=== PATIENT | female | born 1995 | race Caucasian/White ===

== ENCOUNTER 2018-06-15 11:23 | Inpatient (IN) | payer OTHER ==
[~2018-06-15] VITALS: Ht 172.7 cm; Wt 81.8 kg
[2018-06-15 12:25] LABS: HEMATOCRIT 41.2 % (36.0-47.0); MEAN CORPUSCULAR VOLUME 88.2 fl (80.0-96.0); PLATELET COUNT, AUTOMATED 303 10^3/uL (150-450); RED BLOOD COUNT 4.67 10^6/uL (4.00-5.40); WHITE BLOOD COUNT 10.6 10^3/uL (4.0-10.0)
[2018-06-15 13:27] LABS: HCG, SERUM QUALITATIVE NEGATIVE (NEGATIVE)
[2018-06-15 13:39] LABS: ACETAMINOPHEN LEVEL < 2.0 UG/ML (10.0-30.0); ALT/SGPT 19 U/L (12-78); BILIRUBIN,DIRECT < 0.1 MG/DL (0.0-0.2); BILIRUBIN,TOTAL 0.2 MG/DL (0.2-1.0); BLOOD UREA NITROGEN 9 MG/DL (7-18); CALCIUM LEVEL 9.3 MG/DL (8.5-10.1); CARBON DIOXIDE LEVEL 24 MEQ/L (21-32); CHLORIDE LEVEL 106 MEQ/L (98-107); CREATININE FOR GFR 0.64 MG/DL (0.55-1.30); ETHYL ALCOHOL (ETHANOL) < 0.003 % (0.000-0.010); GLUCOSE, FASTING 82 MG/DL (70-100); POTASSIUM SERUM 4.1 MEQ/L (3.5-5.1); SALICYLATE LEVEL < 1.7 MG/DL (5.0-30.0); SODIUM LEVEL 139 MEQ/L (136-145); THYROID STIMULATING HORMONE 0.829 uIU/ML (0.463-3.98); TOTAL PROTEIN 7.5 GM/DL (6.4-8.2)
[2018-06-15 13:53] LABS: AMPHETAMINES LEVEL URINE NEGATIVE (NEGATIVE); BARBITURATES URINE NEGATIVE (NEGATIVE); BENZODIAZEPINES URINE NEGATIVE (NEGATIVE); CANNABINOIDS URINE NEGATIVE (NEGATIVE); COCAINE METABOLITE URINE NEGATIVE (NEGATIVE); METHADONE URINE NEGATIVE (NEGATIVE); OPIATES URINE NEGATIVE (NEGATIVE); PHENCYCLIDINE URINE NEGATIVE (NEGATIVE)
[2018-06-15] MEDS ORDERED: ALPRAZolam 0.5 MG TAB PO ONE (17:15)
--- NOTE | 2018-06-15 22:13 | ECGEPIP ---
Stationary ECG Study [facility] - ED Test Date: 2018-06-15 Pat Name: NING ROSARIO Department: Room: - Gender: F Anesthesiology Faculty: jose : 1995 Requested By: Isaias Reece Order Number: [id number] Reading MD: Blake Dorsey Measurements Intervals [place] Rate: 101 P: 19 VT: 133 QRS: 56 QRSD: 84 T: 44 QT: 310 QTc: 403 Interpretive Statements SINUS TACHYCARDIA Comparison tracing not on file Electronically Signed On 06-15-2018 22:13:09 EDT by Blake Dorsey
[2018-06-16] MEDS: VENLAFAXINE **XR** 37.5 MG CAPSULE PO SCH (09:00)
[2018-06-16] MEDS ORDERED: SUMA6KIT SC (10:57)
[2018-06-16] MEDS ORDERED: JOLETAB PO (10:57)
[2018-06-16] MEDS ORDERED: AMBI5TAB PO (10:57)
[2018-06-16] MEDS ORDERED: NORT25CA2 PO (10:57)
[2018-06-16] MEDS ORDERED: traZODone 50 MG TAB PO PRN (11:15)
[2018-06-16] MEDS ORDERED: ACETAMINOPHEN TAB 650MG DOSE (2X325MG) PO PRN (11:15)
[2018-06-16] MEDS ORDERED: MOM 30ML SUSPENSION UDC PO PRN (11:15)
[2018-06-16] MEDS ORDERED: MAALOX 30 ML SUSP *UDC PO PRN (11:15)
[2018-06-16 12:06] VITALS: BP 132/70
--- NOTE | 2018-06-16 12:49 | HPEPDOC ---
[facility] Medical History & Physical Date of Admission Jun 16, 2018 History and Physical PCP: Krunal Philip ATTENDING: Dr. Natanael Patricia HPI: 22yoF admitted to [facility] for unspecified depressive disorder, being medically examined today. No acute medical complaints today. States she takes Pamelor daily for HICKMAN prophylaxis. HAs have been infrequent, last used imitrex injection approximately 1 month ago. States seen in the past by neurology and her current regimen has been working well for her. Denies any fevers, chills, weakness, fatigue, HICKMAN, CP, SOB, cough, palpitations, abdominal pain, N/V/D or changes in bowel or bladder habits. PMHx: Anxiety depression H/O SI/SA, Ibuprofen OD 2011 H/O self harm, cutting. insomnia migraine HICKMAN PSHX: denies SOCHX: Resides in: [facility], from [facility] Marital Status: Kids: none Employment: unemployed Tobacco use: denies ETOH: denies Illicit Drugs: Denies IV Drug Use: Denies Tattoos done unprofessionally: Denies FAMHX: Mother: Alive, thyroid disorder, anxiety Father: Alive, HTN Siblings: 2 brothers Alive, well Children: none ROS: As noted in HPI, otherwise 11pt ROS of systems reviewed and remarkable only for LMP early May 2018, states takes continuous OCP, cycles Q3 mo. PE: GEN: 22yoF, appears stated age. Well-nourished, well developed. No acute distress. Alert and oriented x 3. Pleasant, interactive. HEENT: Normocephalic, atraumatic. Pupils are equal, round, and reactive to li ght. Extraocular movements are intact. No nystagmus appreciated. Sclera are nonicteric. Conjunctiva without injection. Nose midline. Nasal turbinates without bogginess. EACs both patent BL. TMs both visualized and napier with good cone of light, no bulging or erythema. No facial asymmetry. Moist mucous membranes. Dentition fair. Pharynx pink and moist, no cobblestoning. Neck supple, trachea midline. No lymphadenopathy or thyromegaly appreciated. CHEST: Regular rate and rhythm, +S1, +S2 LUNGS: Clear to auscultation bilaterally. No wheezes, rales, or rhonchi. Breathing appears symmetric and easy. Patient is speaking in full sentences. No accessory muscle use. ABD: Round, soft, non-tender, non-distended. +Bowel sounds throughout. No rebound or guarding. No costovertebral angle tenderness. EXT: Pulses 2+ bilaterally dorsalis pedis and radial. No lower extremity edema appreciated. SKIN: [place], dry, warm. Capillary refill <2sec. No rashes. NEURO: Alert and oriented x 3. Cranial nerves III-XII are intact. No focal de ficits appreciated. EKG: SINUS TACHYCARDIA Comparison tracing not on file Electronically Signed On 06-15-2018 22:13:09 EDT by Blake Dorsey A&P: 22yoF admitted to [facility] for unspecified depressive disorder 1. Psych. Plan per Psychiatry. EKG on file. 2. Migraine HICKMAN. Continue migraine prophylaxis as previously prescribed. Pamelor 100mg daily. Tylenol as needed. Has not used Imitrex injection in the past 1 month. 3.Continue OCP. 4. Follow up with PCP on discharge. 5. Staff member Kateryna AGGARWAL present throughout exam. Vital Signs Vital Signs Date Time Temp Pulse Resp B/P (MAP) Pulse Ox O2 Delivery O2 Flow Rate FiO2 06/16/18 11:18 98.1 112 18 132/70 (90) 100 06/16/18 06:40 Room Air Laboratory Data Labs 24H Laboratory Tests 2 06/15/18 13:20: Urine Amphetamines Screen NEGATIVE, Urine Benzodiazepines Screen NEGATIVE, Urine Opiates Screen NEGATIVE, Urine Methadone Screen NEGATIVE, Urine Barbiturates Screen NEGATIVE, Urine Phencyclidine Screen NEGATIVE, Urine Cocaine Metabolite Screen NEGATIVE, Urine Cannabinoids Screen NEGATIVE Home Medications Scheduled (Jolessa 0.15-0.03 mg) 1 Tab Tab, 1 TAB PO DAILY Nortriptyline HCl (Nortriptyline HCl) 25 Mg Cap, 100 MG PO QHS Zolpidem Tartrate (Ambien) 5 Mg Tab, 5 MG PO QHS Scheduled PRN Sumatriptan Succinate (Sumatriptan Succinate Ref) 6 Mg/0.5 Ml Inj, 6 MG SC DAILY PRN for MIGRAINE Allergies Coded Allergies: Sulfa Antibiotics (Verified Allergy, Intermediate, Hives, 06/15/18) Coleen Alejandro Jun 16, 2018 12:49
--- NOTE | 2018-06-16 17:09 | MHHPEPDOC ---
General Date Of Admission: Jun 16, 2018 Legal Status: 9.39 Chief Complaint "I've been more anxious than depresed, I've been having family problems History of Present Illness HISTORY OF THE PRESENT ILLNESS: Patient is a 22 -year-old , female, who according to ED report: "Patient reports that she has lived here ([place]) for about 6 months. She is from the [facility] & states that she & her decided to get impulsively, following a fairly brief courtship. She states that when they first began seeing each other, he accused her of "cheating" on him because she remained platonic friends with another male, with whom she had text contact. She insists that she had nothing to hide, however this "cheating" has been an issue ever since. She describes her as very controlling, while she appears very dependent. She states that he is so obsessed about her being a "cheater", that he has suggested that perhaps he should be "allowed" to cheat on her with someone else, "At least once". Patient states that the fighting has been escalating recently, to the point where he has threatened to leave her. She stated over & over that she "Can't lose him", regardless of the cost. Patient reports having previous h/o cutting & overdose, resulting in one previous hospitalization. She reports that her current associated sx include insomnia, decreased appetite, severe anxiety, suicidal thoughts & urge to engage in cutting. Throughout interview patient was sobbing, almost uncontrollably. She was quite insitent that she did not wish to stay in the hospital. Patient's was briefly interviewed (separately), to obtain his opinion regarding her safety. stated that patient would be safe if D/C home with him, however he insisted that he wouldn't feel that she was safe if left alone. He noted that he is unable to be with her 28/10 due to his responsibilities with his unit. Patient also noted that she needs medication, is currently in no treatment & has no idea where to seek follow up. While appropriate referrals could be provided if there was a safe D/C plan, she would still not see a provider with the ability to prescribe meds for a least a few weeks.At this time patient appears desperate & at risk for self-injury or suicide, with little insight & poor judgm ent. 06/15/18 @ 6:00 pm- At this time, [facility], [place], [facility], [facility], [facility], [facility], [facility], [facility] are all at capacity. [facility] has confirmed bed availability at [facility]. It has advised that prior to faxing a referral packet, and EKG must be completed. Patient is presently refusing this procedure at the recommendation of her , who reportedly stated, "You don't have to do this", when patient was approached by RN. has continued to attempt to impede patient's course of treatment, even after speaking at length with ED package dyeing machine operator, [facility] Nursing Deputy Program Manager & this lyric writer (several times). 06/16/18 @ 11:00 am- [facility] has had a discharge & now has availability to accommodate patient. Admission orders have been obtained from Dr. Escoto & patient will be admitted on . Psychiatric Review of Systems Depression (2 or more weeks): depressed mood (because she is anxious and she doesn't want to feel shaky, "I just want to calm down"), insomnia/hypersomnia (Insomnia, she takes Ambien ), feelings of excess/guilt [place] (4 or more days of): denies Psychosis: denies PTSD: denies Anxiety: gen/non-specific anxiety, situational anxiety, stressor related anxiety, panic attacks (she had one and it was months ago, she was alone for the first time in her house) Anxiety/ 6 months or more of: sleep disturbance (insmnia) Past Psychiatric History Previous Psychiatric Diagnosis: When she was admitted in [place] (2011) she was diagnosed with anxiety and depression Previous Psychiatric Admissions: Yes, she was admitted in [place] Suicide Attempts: Denies Psychiatric Follow-up: She has a therapist appointment with wayne Almazan Psychiatric medications: She took Sertraline a few days ago but she stopped taking it because she didn't think it was effective Past Medical History Medical Problems Chronic migraines and she takes 00 mgs of Nortryptiline at bedtime and she has an injection, Sumavel, the last time she had it was in April Head Injury: No Seizures: No Hospitalizations: Yes Surgeries: No Family Medical/Psychiatric HX Medical Problems Alive and well Psychiatric Disorders: Yes (mom recently started having anxiety ) Addiction: No Suicide Attemps/Completions: No Addiction History denies Social History Childhood: She was born and raised in [place], [place], she's the only girl out of two boys, she feels she was favored sometimes. She liked going to school, she was in sports, she had a lot of friends. Abuse/Trauma: Denies Current Living Situation: Lives with her and a puppy, "she's like a child", [place] Education: finished HS, she majored in [employer] technology Employment: Unemployed Social Support: Her , her family Legal: Denies Marital: , she has no children. Mental Status Examination General Appearance: well groomed, appears stated age, hospital scubs/clothing Build: average Demeanor: average Eye Contact: average Activity: average Behavior: cooperative Speech: clear, spontaneous, reg/rate,rhythm,volume Mood: anxious Affect: full, appropriate, anxious Thought Process: logical/linear Thought Content (Delusions): none reported Thought Content (Other): none reported Thought Content (Aggressive): none reported Perception (Hallucinations): none reported Perception (Other): none reported Cognition (Impairment of): none reported Cognition(Intelligence Est.): average Oriented: Awake, Alert, Oriented times three Insight: fair Judgment: Fair Psychosis: Denies Diagnoses 1. Generalized Anxiety Disorder 2. Adjustment disorder with anxious/depressed mood 3. R/O Persistent depressive disorder Initial Treatment Plan 1. Patient was admitted on a [9.39] status. 2. Complete history was obtained. 3. With patients permission, family will be contacted and database will be expanded. 4. Patients medication regimen will be reviewed and changed accordingly. 5. Patient will be provided with protected environment. 6. Patient will be treated with individual, group, and milieu therapies. 7. Patient will receive supportive psych-education. 8. Discharge planning will commence immediately. 9. Outpatient follow-up treatment will be strongly recommended. 10. The initial treatment plan will focus initially on: * Anxiety * Ineffective coping * ESTIMATED LENGTH OF STAY: 5-7 DAYS. TIME SPENT COUNSELING AND COORDINATING INITIAL CARE: 60 minutes. Vital Signs Vital Signs Date Time Temp Pulse Resp B/P (MAP) Pulse Ox O2 Delivery O2 Flow Rate FiO2 06/16/18 12:06 98.1 112 18 132/70 (90) 100 06/16/18 06:40 Room Air Medications Scheduled (Jolessa 0.15-0.03 mg) 1 Tab Tab, 1 TAB PO DAILY, (Reported) Nortriptyline HCl (Nortriptyline HCl) 25 Mg Cap, 100 MG PO QHS, (Reported) Zolpidem Tartrate (Ambien) 5 Mg Tab, 5 MG PO QHS, (Reported) Scheduled PRN Sumatriptan Succinate (Sumatriptan Succinate Ref) 6 Mg/0.5 Ml Inj, 6 MG SC DAILY PRN for MIGRAINE, (Reported) Allergies Coded Allergies: Sulfa Antibiotics (Verified Allergy, Intermediate, Hives, 06/15/18) PIPER ESCOTO MD Jun 16, 2018 16:40
[2018-06-16] MEDS ORDERED: PROPRANOLOL 10 MG TAB PO PRN (17:15)
[2018-06-16 18:00] VITALS: BP 140/79
[2018-06-16] MEDS ORDERED: NORTRIPTYLINE 25 MG CAP PO SCH (21:00)
[2018-06-16] MEDS: zolPIDEM TARTRATE 5 MG TAB PO SCH (23:24)
[2018-06-16] MEDS: PROPRANOLOL 10 MG TAB PO SCH (23:24)
[2018-06-17] MEDS: UNRESOLVED PATIENT OWN MED ORDER XX SCH (00:01)
[2018-06-17 06:00] VITALS: BP 139/59
[2018-06-17] MEDS ORDERED: JOLESSA PO SCH (09:00)
[2018-06-17] MEDS: VENLAFAXINE **XR** 37.5 MG CAPSULE PO SCH (09:21)
[2018-06-17] MEDS: PROPRANOLOL 10 MG TAB PO SCH ×3 (09:22→21:56)
[2018-06-17] MEDS ORDERED: hydrOXYzine 50 MG TAB PO ONE (15:15)
[2018-06-17 18:16] VITALS: BP 137/89
--- NOTE | 2018-06-17 20:58 | MHIPNPDOC ---
[facility] Progress Note Progress Note DATE OF SERVICE: 06/17/18 HISTORY: Patient is a 22 -year-old , female, who according to ED report: "Patient reports that she has lived here ([place]) for about 6 months. She is from the [facility] & states that she & her decided to get impulsively, following a fairly brief courtship. She states that when they first began seeing each other, he accused her of "cheating" on him because she remained platonic friends with another male, with whom she had text contact. She insists that she had nothing to hide, however this "cheating" has been an issue ever since. She describes her as very controlling, while she appears very dependent. She states that he is so obsessed about her being a "cheater", that he has suggested that perhaps he should be "allowed" to cheat on her with someone else, "At least once". Patient states that the fighting has been escalating recently, to the point where he has threatened to leave her. She stated over & over that she "Can't lose him", regardless of the cost. Patient reports having previous h/o cutting & overdose, resulting in one previous hospitalization. She reports that her current associated sx include insomnia, decreased appetite, severe anxiety, suicidal thoughts & urge to engage in cutting. Throughout interview patient was sobbing, almost uncontrollably. She was quite insitent that she did not wish to stay in the hospital. Patient's was briefly interviewed (separately), to obtain his opinion regarding her safety. stated that patient would be safe if D/C home with him, however he insisted that he wouldn't feel that she was safe if left alone. He noted that he is unable to be with her 28/10 due to his responsibilities with his unit." VITAL SIGNS: See below. NEW TEST RESULTS: See below CURRENT MEDICATIONS: See below. MENTAL STATUS EXAMINATION: General Appearance: well groomed, appears stated age, hospital scubs/clothing Build: average Demeanor: irritable, angry Eye Contact: avoidant Activity: anxious Behavior: cooperative Speech: clear, spontaneous, reg/rate,rhythm loud volume, yelling at a certain point Mood: anxious Affect: full, inappropriate, anxious Thought Process: logical/linear Thought Content (Delusions): none reported Thought Content (Other): none reported Thought Content (Aggressive): none reported Perception (Hallucinations): none reported Perception (Other): none reported Cognition (Impairment of): none reported Cognition(Intelligence Est.): average Oriented: Awake, Alert, Oriented times three Insight: fair Judgment: Fair Psychosis: Denies Diagnoses 1. Generalized Anxiety Disorder 2. Adjustment disorder with anxious/depressed mood 3. R/O Persistent depressive disorder ASSESSMENT: Patient became agitated today when I told her I would not let her go because her didn't think she was going to be safe at home if she stayed alone. TW asked her to lower the volume of her voice. I told her that if the Surveyor [employer] talked to him and found out that she could stay with someone at home, then she could go home. logistics planner contacted her and he said he was going to ask for a week off to stay with her. MANAGEMENT PLAN: discharge tomorrow. TIME SPENT: 25 minutes. Vital Signs Vital Signs Date Time Temp Pulse Resp B/P (MAP) Pulse Ox O2 Delivery O2 Flow Rate FiO2 06/17/18 18:16 98.6 94 16 137/89 (105) 06/17/18 11:07 Room Air 06/16/18 12:06 100 Current Medications Current Medications Acetaminophen (Tylenol Tab) 650 mg Q6HP PRN PO HEADACHE or DISCOMFORT Last administered on 06/17/18at 18:09; Start 06/16/18 at 11:15 Al Hydrox/Mg Hydrox/Simethicone (Mylanta) 30 ml Q4HP PRN PO HEARTBURN/INDIGESTION; Start 06/16/18 at 11:15 Home Med (Med Rec Complete!) ASDIRECTED XX ; Start 06/16/18 at 11:00; Stop at 11:00; Status DC Magnesium Hydroxide (Milk Of Magnesia) 30 ml DAILYPRN PRN PO CONSTIPATION; Start 06/16/18 at 11:15 Miscellaneous (Unresolved Patient Own Med Order) SEE LABEL COMMENTS UNRESOLVED XX ; Start 06/17/18 at 00:01 Nortriptyline HCl (Pamelor) 100 mg QHS PO ; Start 06/16/18 at 21:00; Status Cancel Patient Own Medication (Patient'S Own Med) Jolessa DAILY PO ; Start 06/17/18 at 09:00; Status UNV Propranolol HCl (Inderal) 10 mg TID PO Last administered on 06/17/18at 15:02; Start 06/16/18 at 21:00 Propranolol HCl (Inderal) 10 mg TID PRN PO ANXIETY/AGITATION; Start 06/16/18 at 17:15; Stop 06/16/18 at 17:26; Status DC Trazodone HCl (Desyrel) 50 mg QHSP PRN PO INSOMNIA; Start 06/16/18 at 11:15; Status Cancel Venlafaxine HCl (Effexor Xr) 37.5 mg QAM PO Last administered on 06/17/18at 09:21; Start 06/16/18 at 09:00; Stop 06/17/18 at 14:44; Status DC Venlafaxine HCl (Effexor Xr) 75 mg QAM PO ; Start 06/18/18 at 09:00 Zolpidem Tartrate (Ambien) 10 mg QHS PO Last administered on 06/16/18at 23:24; Start 06/16/18 at 21:00 Allergies Coded Allergies: Sulfa Antibiotics (Verified Allergy, Intermediate, Hives, 06/15/18) PIPER ESCOTO MD Jun 17, 2018 20:53
[2018-06-17] MEDS ORDERED: SUMAtriptan SUCCINATE 6 MG/0.5 ML VIAL SC ONE (21:15)
[2018-06-17] MEDS: zolPIDEM TARTRATE 5 MG TAB PO SCH (21:55)
[2018-06-18] MEDS: UNRESOLVED PATIENT OWN MED ORDER XX SCH (00:01)
[2018-06-18 06:39] VITALS: BP 137/84
[2018-06-18 08:53] VITALS: BP 137/84
[2018-06-18] MEDS: PROPRANOLOL 10 MG TAB PO SCH (08:53)
[2018-06-18] MEDS ORDERED: VENLAFAXINE **XR** 75MG CAPSULE PO SCH (09:00)
[2018-06-18] MEDS ORDERED: AMBI5TAB PO (09:22)
[2018-06-18] MEDS ORDERED: VENL75CA47 PO (09:22)
[2018-06-18] MEDS ORDERED: PROP10TAB PO (09:24)
--- NOTE | 2018-06-21 18:06 | MHDSPDOC ---
[facility] Discharge Summary Discharge Summary DATE OF ADMISSION: Jun 16, 2018 at 11:06 DATE OF DISCHARGE: Jun 18, 2018 at 11:25 DISCHARGE DIAGNOSES: 1. Persistent depressive disorder 2. Adjustment disorder with anxious/depressed mood 3. Generalized Anxiety disorder REASON FOR ADMISSION: Patient is a 22 -year-old , female, who according to ED report: "Patient reports that she has lived here ([place]) for about 6 months. She is from the [facility] & states that she & her decided to get impulsively, following a fairly brief courtship. She states that when they first began seeing each other, he accused her of "cheating" on him because she remained platonic friends with another male, with whom she had text contact. She insists that she had nothing to hide, however this "cheating" has been an issue ever since. She describes her as very controlling, while she appears very dependent. She states that he is so obsessed about her being a "cheater", that he has suggested that perhaps he should be "allowed" to cheat on her with someone else, "At least once". Patient states that the fighting has been escalating recently, to the point where he has threatened to leave her. She stated over & over that she "Can't lose him", regardless of the cost. Patient reports having previous h/o cutting & overdose, resulting in one previous hospitalization. She reports that her current associated sx include insomnia, decreased appetite, severe anxiety, suic idal thoughts & urge to engage in cutting. Throughout interview patient was sobbing, almost uncontrollably. She was quite insitent that she did not wish to stay in the hospital. Patient's was briefly interviewed (separately), to obtain his opinion regarding her safety. stated that patient would be safe if D/C home with him, however he insisted that he wouldn't feel that she was safe if left alone. He noted that he is unable to be with her 28/10 due to his responsibilities with his unit." CONSULTANTS INVOLVED: None TREATMENT AND PROGRESS ON THE UNIT : Upon initial evaluation the patient was ve ry tearful, very anxious, angry because she had been admitted to [facility], complaining because she didn't think that she needed to be admitted. On her second day of hospitalization she turned out to be angry/irritable and demanding of being discharged and she didn't understand that we had to speak to her before we could let her go. She was in complete denial of being suicidal and tw mentioned that in the note from the ED it was mentioned that her didn't trust having her home alone since he couldn't take care of her 28/10 because he had to work. She yelled at this editorial writer, well "then, do something, call him" and tw told her the material planner would call him but I would have not done it previously either because with her history we needed to have started her on medications and observe how she reacted at least for 24 hours. [employer] contacted her and he mentioned he could ask to take some days off to be able to stay with her at home and make sure she was doing fine. She mentioned all the time that her problem was much more anxiety than anything else, her high levels of anxiety were making her feel depressed. She mentioned that her and her had gotten impulsively, they had not dated for a long time before they decided to . She insisted that she was not suicidal but she didn't want to give up on her marriage, she felt lonely in this area whe re she didn't have any relatives because she was born and raised in [place]. She had a good response to Venlafaxine. TW discontinued Nortriptyline because she was taking 100 mgs and I wanted her to start taking Venlafaxine. I told her that since I was thinking of giving her Propranolol for her anxiety problem, maybe this same medication would be able to help her with her migraines. She wanted to continue taking Ambien at bedtime for insomnia and she mentioned that when her medications for migraine didn't work, she used Sumatriptan, injectable and this editorial writer thought that since this medication was PRN, she was going to be OK using it while taking Venlafaxine. HOSPITAL COURSE: As above DISCHARGE ASSESSMENT: Patient was not homicidal, not suicidal and not psychotic at the time of her discharge, she was future orientated, she was willing to work on her marriage problems, wanted to get a job. MENTAL STATUS EXAMINATION ON DISCHARGE: General Appearance: well groomed, appears stated age, hospital scrubs/clothing Build: average Demeanor: demanding, inpatient, anxious Eye Contact: avoidant Activity: anxious Behavior: cooperative Speech: clear, spontaneous, reg/rate,rhythm loud volume, yelling at a certain point Mood: anxious Affect: full, congruent, anxious Thought Process: logical/linear Thought Content (Delusions): none reported Thought Content (Other): none reported Thought Content (Aggressive): none reported Perception (Hallucinations): none reported Perception (Other): none reported Cognition (Impairment of): none reported Cognition(Intelligence Est.): average Oriented: Awake, Alert, Oriented times three Insight: fair Judgment: Fair Psychosis: Denies MEDICATIONS ON DISCHARGE: Scheduled (Jolessa 0.15-0.03 mg) 1 Tab Tab, 1 TAB PO DAILY, (Reported) Propranolol HCl (Propranolol HCl) 10 Mg Tab, 10 MG PO TID for anxiety, #21 Venlafaxine HCl (Venlafaxine HCl ER) 75 Mg Capcr, 75 MG PO QAM for anxiety/depression, #7 Zolpidem Tartrate (Ambien) 5 Mg Tab, 5 MG PO QHS, (Reported) Scheduled PRN Sumatriptan Succinate (Sumatriptan Succinate Ref) 6 Mg/0.5 Ml Inj, 6 MG SC DAILY PRN for MIGRAINE, (Reported) PLAN/FOLLOWUP ARRANGEMENTS: Follow Up Care Education Label * Mental Health Appt 1 * Mental Health [facility] * Established With This Provider Yes * Therapist OLIVIER SILVEIRA * Date Jun 19, 2018 * Time 10:00 * * Additional information *NOTE: This is just for the 5-day mental health follow up. Patient normally sees Georgie Briscoe LCSW.* Follow Up Care Education Label * Medical * Medical Follow Up [place] * Established With This Provider Yes * Additional information Please call us for health care appointment at [phone] The amount of time spent in the coordination of care for this patient was approximately 30 minutes. Vital Signs/I&Os Vital Signs Date Time Temp Pulse Resp B/P (MAP) Pulse Ox O2 Delivery O2 Flow Rate FiO2 06/18/18 08:53 96 137/84 06/18/18 06:39 98.5 16 06/17/18 11:07 Room Air 06/16/18 12:06 100 Medications Scheduled (Jolessa 0.15-0.03 mg) 1 Tab Tab, 1 TAB PO DAILY, (Reported) Propranolol HCl (Propranolol HCl) 10 Mg Tab, 10 MG PO TID for anxiety, #21 Venlafaxine HCl (Venlafaxine HCl ER) 75 Mg Capcr, 75 MG PO QAM for anxiety/depression, #7 Zolpidem Tartrate (Ambien) 5 Mg Tab, 5 MG PO QHS, (Reported) Scheduled PRN Sumatriptan Succinate (Sumatriptan Succinate Ref) 6 Mg/0.5 Ml Inj, 6 MG SC DAILY PRN for MIGRAINE, (Reported) Allergies Coded Allergies: Sulfa Antibiotics (Verified Allergy, Intermediate, Hives, 06/15/18) PIPER ESCOTO MD Jun 21, 2018 18:01
== END 2018-06-18 11:25 | disposition home or self-care (01) | DRG 880 ==
LOC: M ED 11:23 → M ED INP 06-16 11:06 → M PSY 06-16 12:00
PROVIDERS: ADMIT Psychiatry & Neurology Psychiatry; ATTEND Psychiatry & Neurology Psychiatry
DX: F41.1 Generalized anxiety disorder (principal); F43.23 Adjustment disorder with mixed anxiety and depressed mood; F34.1 Dysthymic disorder; G43.709 Chronic migraine without aura, not intractable, without status migrainosus; Z91.5 Personal history of self-harm; G47.00 Insomnia, unspecified; Z79.899 Other long term (current) drug therapy; Z88.2 Allergy status to sulfonamides

== ENCOUNTER 2020-03-11 19:16 | Emergency (ER) | payer OTHER ==
[~2020-03-11] VITALS: Ht 172.7 cm; Wt 120.6 kg
[~2020-03-11 19:16] MED LIST: AMBI5TAB PO; JOLETAB PO; NORT25CA2 PO; PROP10TA55 PO; SUMA6KIT SC; VENL75CA47 PO
[2020-03-11] MEDS ORDERED: MAGN400T3 (19:25)
[2020-03-11] MEDS ORDERED: B-2100TA (19:25)
[2020-03-11] MEDS ORDERED: VENLAFAXINE 225 MG (19:25)
[2020-03-11] MEDS ORDERED: METOCLOPRAMIDE INJ 10MG/2ML VIAL (J2765 PER 1) IV ONE (19:45)
[2020-03-11] MEDS ORDERED: NS 1,000 ML IV ONE (19:45)
[2020-03-11] MEDS ORDERED: diphenhydrAMINE 50MG/ML VIAL (J1200) IV ONE (19:45)
[2020-03-11] MEDS ORDERED: ACETAMINOPHEN 500 MG TAB PO ONE (19:45)
[2020-03-11 20:29] LABS: BASO % 0.3 % (0.0-1.0); EOS % 0.3 % (0.0-3.0); HEMOGLOBIN 12.7 g/dl (12.0-15.5); LYMPH # 1.7 10^3/uL (1.5-5.0); LYMPH % 16.3 % (24.0-44.0); MEAN CORPUSCULAR HEMOGLOBIN 28.9 pg (27.0-33.0); MEAN CORPUSCULAR HGB CONC 32.6 g/dl (32.0-36.5); MEAN CORPUSCULAR VOLUME 88.8 fl (80.0-96.0); MONO # 0.5 10^3/uL (0.0-0.8); MONO % 4.4 % (0.0-5.0); NEUTROPHILS # 8.1 10^3/uL (1.5-8.5); NEUTROPHILS % 78.3 % (36.0-66.0); PLATELET COUNT, AUTOMATED 289 10^3/uL (150-450); RED BLOOD COUNT 4.39 10^6/uL (4.00-5.40); WHITE BLOOD COUNT 10.3 10^3/uL (4.0-10.0)
[2020-03-11 20:50] LABS: ERYTHROCYTE SEDIMENTATION RATE 33 mm/hr (0-20)
[2020-03-11 20:56] LABS: ALBUMIN 3.4 GM/DL (3.2-5.2); ALT/SGPT 33 U/L (12-78); BILIRUBIN,DIRECT < 0.1 MG/DL (0.0-0.2); BILIRUBIN,TOTAL 0.2 MG/DL (0.2-1.0); BLOOD UREA NITROGEN 7 MG/DL (7-18); C REACTIVE PROTEIN QUANTITATIV 1.95 MG/DL (0.00-0.30); CALCIUM LEVEL 9.1 MG/DL (8.5-10.1); CARBON DIOXIDE LEVEL 22 MEQ/L (21-32); CHLORIDE LEVEL 106 MEQ/L (98-107); CREATININE FOR GFR 0.59 MG/DL (0.55-1.30); GLOMERULAR FILTRATION RATE > 60.0 (>60); GLUCOSE, FASTING 71 MG/DL (70-100); POTASSIUM SERUM 4.1 MEQ/L (3.5-5.1); SODIUM LEVEL 138 MEQ/L (136-145); TOTAL PROTEIN 7.2 GM/DL (6.4-8.2)
[2020-03-11 21:00] LABS: HCG, SERUM QUALITATIVE NEGATIVE (NEGATIVE)
--- NOTE | 2020-03-11 21:42 | REPVR ---
PROCEDURE INFORMATION: Exam: CT Head Without Contrast Exam date and time: 03/11/2020 9:07 PM Age: 24 years old Clinical indication: Pain; Headache; Migraine; Additional info: Migraine x 3 days, severe R parietal TECHNIQUE: Imaging protocol: Computed tomography of the head without contrast. Radiation optimization: All CT scans at this facility use at least one of these dose optimization techniques: automated exposure control; mA and/or kV adjustment per patient size (includes targeted exams where dose is matched to clinical indication); or iterative reconstruction. COMPARISON: No relevant prior studies available. FINDINGS: Brain: There is no CT evidence for an acute large vessel territorial infarct. No acute intracranial hemorrhage is seen. No mass, mass effect, midline shift, or herniation is noted. The cortical gyration pattern, basal ganglia, thalami, brainstem, and cerebellum are normal in appearance. Cerebral ventricles: Normal. No hydrocephalus. Bones/joints: The skull is intact. No suspicious osteolytic or osteoblastic lesion. Paranasal sinuses: The imaged portions of the sinuses are well-aerated. No air-fluid levels are noted in the sinuses. Mastoid air cells: Clear. Soft tissues: No soft tissue fluid collection. There is a calcification in the scalp in the left parietal region. IMPRESSION: No acute intracranial abnormality. Electronically signed by: Cody Mcclain On 03/11/2020 21:42:26 PM
[2020-03-11 21:45] VITALS: BP 140/84
== END 2020-03-11 21:59 | disposition home or self-care (01) ==
LOC: M ED 19:16
DX: G43.909 Migraine, unspecified, not intractable, without status migrainosus (principal); F32.9 Major depressive disorder, single episode, unspecified; F41.9 Anxiety disorder, unspecified; Z82.0 Family history of epilepsy and other diseases of the nervous system; Z88.2 Allergy status to sulfonamides; Z79.899 Other long term (current) drug therapy; Z79.3 Long term (current) use of hormonal contraceptives
CPT/HCPCS: 70450; 80048; 80076; 84703; 85025; 85652; 86140; 96361; 96374; 96375; 99284; J1200; J2765

== ENCOUNTER 2020-04-05 16:48 | Emergency (ER) | payer OTHER ==
[~2020-04-05] VITALS: Ht 172.7 cm; Wt 121.7 kg
[~2020-04-05 16:48] MED LIST changes: +B-2100TA; +MAGN400T3; +VENLAFAXINE 225 MG
[2020-04-05] MEDS ORDERED: TOPI50TA9 PO (16:55)
[2020-04-05] MEDS ORDERED: TRAZ-257 PO (16:55)
[2020-04-05] MEDS ORDERED: diphenhydrAMINE 50MG/ML VIAL (J1200) IV STA ×2 (17:51→19:02)
[2020-04-05] MEDS ORDERED: NS 1,000 ML IV ONE ×3 (18:00→19:30)
[2020-04-05] MEDS ORDERED: KETOROLAC 30 MG/ML 1ML VIAL IV ONE ×3 (18:00→19:30)
[2020-04-05] MEDS ORDERED: diphenhydrAMINE 50MG CAP PO ONE (18:30)
[2020-04-05] MEDS ORDERED: KETOROLAC 60MG 2ML VIAL IM ONE (18:30)
[2020-04-05] MEDS: diphenhydrAMINE 50MG/ML VIAL (J1200) IV STA ×2 (19:10→19:33)
[2020-04-05 19:14] LABS: HCG, SERUM QUALITATIVE NEGATIVE (NEGATIVE)
[2020-04-05 19:24] LABS: BLOOD UREA NITROGEN 9 MG/DL (7-18); CALCIUM LEVEL 8.8 MG/DL (8.5-10.1); CARBON DIOXIDE LEVEL 22 MEQ/L (21-32); CHLORIDE LEVEL 108 MEQ/L (98-107); CK-MB VALUE MASS < 1.0 NG/ML (<3.6); CPK CREATINE PHOSPHOKINASE 85 U/L (26-192); CREATININE FOR GFR 0.67 MG/DL (0.55-1.30); GLOMERULAR FILTRATION RATE > 60.0 (>60); GLUCOSE, FASTING 70 MG/DL (70-100); MB/CK RELATIVE INDEX 1.18 (< OR =4); POTASSIUM SERUM 4.9 MEQ/L (3.5-5.1); SODIUM LEVEL 139 MEQ/L (136-145); TROPONIN I < 0.02 NG/ML (< 0.10)
--- NOTE | 2020-04-05 19:40 | REP ---
INDICATION: cp COMPARISON: None. TECHNIQUE: PA and lateral. FINDINGS: The mediastinum and cardiac silhouette are normal. The lung rowe are clear and without acute consolidation, effusion, or pneumothorax. The skeletal structures are intact and normal. IMPRESSION: No acute cardiopulmonary process. <Electronically signed by Kenan Adair > 04/05/201936
[2020-04-05] MEDS ORDERED: ISOVUE-370 76% 100ML VIAL As Ordered ONE (20:29)
--- NOTE | 2020-04-05 20:57 | REPVR ---
PROCEDURE INFORMATION: Exam: CT Angiography Chest With Contrast Exam date and time: 04/05/2020 8:32 PM Age: 24 years old Clinical indication: Shortness of breath; Additional info: Elev d dimer, SOB, chest pain TECHNIQUE: Imaging protocol: Computed tomographic angiography of the chest with intravenous contrast. 3D rendering (Not supervised by radiologist): MIP and/or 3D reconstructed images were created by the technologist. Radiation optimization: All CT scans at this facility use at least one of these dose optimization techniques: automated exposure control; mA and/or kV adjustment per patient size (includes targeted exams where dose is matched to clinical indication); or iterative reconstruction. Contrast material: ISOVUE 370; Contrast volume: 75 ml; Contrast route: INTRAVENOUS (IV); COMPARISON: CR Chest, 2 view PA, Lat 04/05/2020 7:26 PM FINDINGS: Pulmonary arteries: Normal. No pulmonary emboli. Aorta: Unremarkable. No aortic aneurysm. No aortic dissection. Lungs: Unremarkable. No consolidation. No masses. Pleural space: Unremarkable. No pneumothorax. No pleural effusion. Heart: Unremarkable. No cardiomegaly. No pericardial effusion. Lymph nodes: Unremarkable. No enlarged lymph nodes. Bones/joints: Unremarkable. No acute fracture. Soft tissues: Unremarkable. IMPRESSION: No acute findings. Electronically signed by: Jorge Leavitt On 04/05/2020 20:57:42 PM
[2020-04-05 21:18] LABS: BASO # 0.1 10^3/uL (0.0-0.2); BASO % 0.4 % (0.0-1.0); EOS # 0.1 10^3/uL (0.0-0.5); EOS % 1.1 % (0.0-3.0); HEMATOCRIT 36.6 % (36.0-47.0); HEMOGLOBIN 12.3 g/dl (12.0-15.5); LYMPH # 2.5 10^3/uL (1.5-5.0); LYMPH % 20.2 % (24.0-44.0); MEAN CORPUSCULAR HEMOGLOBIN 28.8 pg (27.0-33.0); MEAN CORPUSCULAR HGB CONC 33.6 g/dl (32.0-36.5); MEAN CORPUSCULAR VOLUME 85.7 fl (80.0-96.0); MONO # 0.9 10^3/uL (0.0-0.8); MONO % 7.3 % (0.0-5.0); NEUTROPHILS # 8.6 10^3/uL (1.5-8.5); NEUTROPHILS % 70.3 % (36.0-66.0); PLATELET COUNT, AUTOMATED 313 10^3/uL (150-450); RED BLOOD COUNT 4.27 10^6/uL (4.00-5.40); WHITE BLOOD COUNT 12.3 10^3/uL (4.0-10.0)
[2020-04-05] MEDS ORDERED: NAPR-837 PO (22:25)
[2020-04-05 22:37] VITALS: BP 138/78
--- NOTE | 2020-04-06 13:32 | ECGEPIP ---
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
== END 2020-04-05 22:41 | disposition home or self-care (01) ==
LOC: M ED 16:48
DX: R07.89 Other chest pain (principal); R06.02 Shortness of breath; T50.995A Adverse effect of other drugs, medicaments and biological substances, initial encounter; X58.XXXA Exposure to other specified factors, initial encounter; Y92.89 Other specified places as the place of occurrence of the external cause; R51.9 Headache, unspecified; Z79.899 Other long term (current) drug therapy; Z79.3 Long term (current) use of hormonal contraceptives; Z88.1 Allergy status to other antibiotic agents; Z88.2 Allergy status to sulfonamides
CPT/HCPCS: 36415; 71046; 71275; 80048; 82550; 82553; 84484; 84703; 85025; 85379; 93005; 96361; 96374; 96375; 96376; 99284; J1200; J1885; Q9967; U0003

== ENCOUNTER → 2020-04-23 | Outpatient (CLI) | payer SELFPAY ==
[~2020-04-23] MED LIST changes: +NAPR-837 PO; +TOPI50TA9 PO; +TRAZ-257 PO
== END ==
LOC: M LABSMTC 09:09
PROVIDERS: ATTEND Pediatrics
DX: Z20.822 Contact with and (suspected) exposure to COVID-19 (principal)

== ENCOUNTER 2020-04-30 18:11 | Emergency (ER) | payer OTHER ==
[~2020-04-30] VITALS: Ht 172.7 cm; Wt 119.9 kg
[2020-04-30] MEDS ORDERED: METOCLOPRAMIDE INJ 10MG/2ML VIAL (J2765 PER 1) IV ONE (18:30)
[2020-04-30] MEDS ORDERED: NS 1,000 ML IV ONE (18:30)
--- NOTE | 2020-04-30 19:15 | REPVR ---
PROCEDURE INFORMATION: Exam: CT Head Without Contrast Exam date and time: 04/30/2020 6:46 PM Age: 24 years old Clinical indication: Injury or trauma; Fall; Blunt trauma (contusions or hematomas); Additional info: Posterior trauma 3 days ago, headache with vomiting TECHNIQUE: Imaging protocol: Computed tomography of the head without contrast. Radiation optimization: All CT scans at this facility use at least one of these dose optimization techniques: automated exposure control; mA and/or kV adjustment per patient size (includes targeted exams where dose is matched to clinical indication); or iterative reconstruction. COMPARISON: CT Head without contrast 03/11/2020 9:03 PM FINDINGS: Brain: Shay cisterna magna. Cerebral ventricles: No ventriculomegaly. Bones/joints: Unremarkable. No acute fracture. Paranasal sinuses: Visualized sinuses are unremarkable. No fluid levels. Mastoid air cells: Visualized mastoid air cells are well aerated. Soft tissues: Unremarkable. IMPRESSION: No acute intracranial findings. Electronically signed by: Jorge Leavitt On 04/30/2020 19:15:18 PM
[2020-04-30] MEDS ORDERED: KETOROLAC 30 MG/ML 1ML VIAL IV ONE (19:45)
[2020-04-30] MEDS ORDERED: ONDA4TAB6 PO (20:31)
[2020-04-30 20:40] VITALS: BP 130/84
== END 2020-04-30 20:46 | disposition home or self-care (01) ==
LOC: M ED 18:11
DX: G43.909 Migraine, unspecified, not intractable, without status migrainosus (principal); S09.90XA Unspecified injury of head, initial encounter; W19.XXXA Unspecified fall, initial encounter; Y92.89 Other specified places as the place of occurrence of the external cause; Y93.89 Activity, other specified; Y99.8 Other external cause status; Z79.3 Long term (current) use of hormonal contraceptives; Z88.2 Allergy status to sulfonamides
CPT/HCPCS: 70450; 96374; 96375; 99284; J1885; J2765